=== PATIENT | male | born 1960 | race Caucasian/White ===

== ENCOUNTER 2017-01-20 16:05 | Inpatient (IN) | payer OTHER, MEDICAID ==
[~2017-01-20] VITALS: Ht 188 cm; Wt 108.0 kg
--- NOTE | 2017-01-20 16:50 | NUR ---
ADMIT NOTE Received pt from ER to the floor with a diagnosis of intractable headache. Admission process initiated. patient oriented to pain management, safety and call light-teach back done.
[2017-01-20 17:02] VITALS: BP_SYST 141
[2017-01-20] MEDS ORDERED: CARV12.548 PO (17:41)
[2017-01-20] MEDS ORDERED: ELA25 PO (17:41)
[2017-01-20] MEDS ORDERED: CITA20TA11 PO (17:41)
[2017-01-20] MEDS ORDERED: LOSA25TA3 PO (17:41)
[2017-01-20] MEDS ORDERED: NOR10 PO (17:41)
[2017-01-20] MEDS ORDERED: CYCL-365 PO (17:41)
[2017-01-20] MEDS ORDERED: NEU300 PO (17:41)
[2017-01-20] MEDS ORDERED: COLC0.6T67 PO (17:41)
[2017-01-20 18:27] LABS: BASOPHILS % (AUTO) 0.3 % (0.0-2.0); EOSINOPHILS % (AUTO) 0.3 % (0.0-4.0); HEMOGLOBIN 13.5 g/dL (14.0-18.0); LYMPHOCYTES # (AUTO) 2.1 K/uL (1.0-5.5); LYMPHOCYTES % (AUTO) 17.4 % (20.5-51.5); MEAN CORPUSCULAR HEMOGLOBIN 32 pg (27-31); MEAN CORPUSCULAR HGB CONC 35 % (32-36); MEAN CORPUSCULAR VOLUME 92 fL (79.0-98.0); MONOCYTES # (AUTO) 0.7 K/uL (0.0-1.0); MONOCYTES % (AUTO) 5.7 % (1.7-9.3); NEUTROPHILS # (AUTO) 9.1 K/uL (1.8-7.7); NEUTROPHILS % (AUTO) 76.3 % (40.0-70.0); PLATELET COUNT (AUTO) 230 K/uL (130-430); RED BLOOD CELL COUNT(AUTO) 4.26 MIL/uL (4.2-6.2); RED CELL DISTRIBUTION WIDTH 13.1 % (9.0-15.0); WHITE BLOOD COUNT (AUTO) 11.9 K/uL (4.8-10.8)
[2017-01-20 18:34] LABS: CALCIUM 8.9 mg/dL (8.4-11.0); CREATININE 1.7 mg/dL (0.55-1.30); POTASSIUM 4.4 mmol/L (3.5-5.1)
[2017-01-20 18:39] LABS: ALBUMIN 3.5 g/dL (3.4-4.8); TOTAL BILIRUBIN 0.4 mg/dL (0.0-1.0); TOTAL PROTEIN, SERUM 7.4 g/dL (6.4-8.3)
--- NOTE | 2017-01-20 19:09 | NUR ---
CONSULTATION PAGED REASON FOR CONSULTATION:RIGHT SIDE NECK MASS WAS CONSULT CALLED?Y PERSON WHO WAS NOTIFIED:ALEJANDRO CONSULTING PHYSICIAN:ALIA ALVAREZ COURT ATTENDANT SPECIALTY:ONCOLOGY/HEMATOLOGY COURT ATTENDANT PHONE NUMBER:[phone]
[2017-01-20 19:30] VITALS: BP_SYST 152
--- NOTE | 2017-01-20 19:30 | NUR ---
INITIAL NOTES; -Pt is a/ox4. Pt denies any pain, sob,or acute distress. IV left hand #24,patent, no s/s any infiltration. Fall precaution in place. Bed alarm in place, bed low position and side railsx2. Call light w/in reach. Discussed poc,all safety measures, pain mgmt, to use call light to inform nurse, pt verbalized understanding. Continue to monitor pt.
[2017-01-20] MEDS: CYCLOBENZAPRINE HCL 10 MG TABLET (FLEXERIL) PO SCH (20:50)
[2017-01-20] MEDS: CARVEDILOL 12.5 MG TABLET (COREG) PO SCH (20:50)
[2017-01-20] MEDS: AMITRIPTYLINE HCL 25 MG TABLET (ELAVIL) PO SCH (20:51)
[2017-01-20] MEDS: GABAPENTIN 300 MG CAPSULE PO SCH (20:51)
[2017-01-20] MEDS: HYDROmorphone 2 MG/ML VIAL IVP PRN (20:51)
--- NOTE | 2017-01-20 20:51 | NUR ---
PAIN MEDICATION ADMINISTERED -Pt is c/o rt face and rt neck pain sharp, gave Dilaudid 2mg IVP. See EMAR for pain reassessment. Call light /win reach. Continue to monitor pt.
[2017-01-20] MEDS: INSULIN REGULAR, HUMAN 100 UNITS/ML, 10 ML VIAL (novoLIN R) SUBCUT PRN (20:56)
--- NOTE | 2017-01-20 21:50 | NUR ---
ROUNDS; RETURNED FROM BATHROOM TO BED SAFELY -Pt is able to transfer from own wheelchair from toilet to wheelchair safely to bed with mini assistance. Fall precaution in place. Call light w/in reach. Continue to monitor pt.
--- NOTE | 2017-01-20 22:38 | NUR ---
ROUNDS; -Pt is resting. Pt denies any pain, sob,or acute distress. Fall precaution in place. Bed alarm in place, bed low position and side railsx2. Call light w/in reach. Continue to monitor pt.
[2017-01-21] VITALS (7 sets, daily range): BP systolic 103–145
--- NOTE | 2017-01-21 | NUR ---
ENDORSED TO LUCIA-RN TO CONTINUE CARE -Pt is resting. No s/s any pain, sob,or acute distress noted. Fall precaution in place. Bed alarm in place, bed low position and side railsx2. Call light w/in reach. Continue to monitor pt.
--- NOTE | 2017-01-21 00:01 | NUR ---
ASSUMPTION OF CARE ASSUMED CARE OF PT., PT. IS RESTING QUIETLY, VITAL SIGNS STABLE, NO DISTRESS NOTED, DENIES PAIN. CALL LIGHT WITHIN REACH, BED IN LOWEST POSITION.
[2017-01-21] MEDS: HYDROmorphone 2 MG/ML VIAL IVP PRN ×5 (01:47→20:10)
--- NOTE | 2017-01-21 01:47 | NUR ---
PAIN PT. C/O SEVERE PAIN RATED "10/10 TO R. SIDE OF NECK AND HEAD", DILAUDID 2 MG IVP GIVEN ORDERED. VITAL SIGNS STABLE, CALL LIGHT WITHIN REACH.
--- NOTE | 2017-01-21 03:45 | NUR ---
RN ROUNDS PT. SLEEPING, VITAL SIGNS STABLE, NO DISTRESS NOTED, NO S/S OF PAIN OR DISCOMFORT. CALL LIGHT WITHIN REACH, BED IN LOWEST POSITION.
--- NOTE | 2017-01-21 05:45 | NUR ---
RN ROUNDS PT. SLEEPING, NO DISTRESS NOTED, NO S/S OF PAIN OR DISCOMFORT. CALL LIGHT WITHIN REACH, BED IN LOWEST POSITION.
--- NOTE | 2017-01-21 06:25 | NUR ---
ACCUCHECK/CLOSING NOTES BLOOD NGULX=048, NO COVERAGE REQUIRED. IV ACCESS FLUSHED WELL, SALINE LOCKED. NO DISTRESS NOTED, NO S/S OF PAIN OR DISCOMFORT. CALL LIGHT WITHIN REACH, BED IN LOWEST POSITION.
--- NOTE | 2017-01-21 07:35 | NUR ---
initial rounds patient AOx4, sitting up at bedside speaking with neighbor, patient complaining of increased pain to his right face,ear and right side of neck, patient asking when his next "pain shot" is due, explained to patient of today's plan, patient is calm and cooperative
--- NOTE | 2017-01-21 09:24 | NUR ---
Nutrition Update Olman Scale 18 noted. Pt admitted for retractable headache. Diet: [facility] BMI: 30.7 kg/m2 RD to follow per nutrition care standards.
[2017-01-21] MEDS: CYCLOBENZAPRINE HCL 10 MG TABLET (FLEXERIL) PO SCH ×2 (09:27→21:38)
[2017-01-21] MEDS: COLCHICINE 0.6 MG TABLET PO SCH (09:28)
[2017-01-21] MEDS: GABAPENTIN 300 MG CAPSULE PO SCH ×3 (09:28→21:38)
[2017-01-21] MEDS: amLODIPine BESYLATE 10 MG TABLET PO SCH (09:28)
[2017-01-21] MEDS: CITALOPRAM HYDROBROMIDE 20 MG TABLET PO SCH (09:29)
[2017-01-21] MEDS: LOSARTAN POTASSIUM 25 MG TABLET PO SCH (09:29)
[2017-01-21] MEDS: CARVEDILOL 12.5 MG TABLET (COREG) PO SCH ×2 (09:43→21:38)
[2017-01-21] MEDS ORDERED: CARVEDILOL 6.25 MG TABLET (COREG) ONE (09:44)
--- NOTE | 2017-01-21 09:45 | NUR ---
rounds patient AOx4, sitting up at bedside, speaking with neighbor, patient requesting pain medication, explained to patient that I will give him his pain medication at 10:30, patient calm and cooperative
[2017-01-21] MEDS ORDERED: DIATR MEGLU/DIATRIZ SOD 30 ML SOLUTION PO ONE (10:50)
--- NOTE | 2017-01-21 11:45 | NUR ---
patient Aox4, lying supine in [facility] talking on phone, patient has no complaints at this time
[2017-01-21] MEDS: INSULIN REGULAR, HUMAN 100 UNITS/ML, 10 ML VIAL (novoLIN R) SUBCUT PRN ×3 (11:46→21:46)
--- NOTE | 2017-01-21 13:18 | NUR ---
rounds patient assisted to the bathroom via wheelchair, tolerated well
--- NOTE | 2017-01-21 14:56 | NUR ---
rounds patient lying in gurney, awake, calm and cooperative, respiration even and unlabored at this time
--- NOTE | 2017-01-21 15:05 | NUR ---
pain patient requsting pain medication, states "my ear is burning 10/10" patient sitting up at bedside, watching movie on his phone
--- NOTE | 2017-01-21 17:49 | NUR ---
patient sitting up at bedside, eating dinner, requesting another cup of coffee, would like to send salad back for something else because he "told the kaiawhina kohanga reo earlier that he can't eat salad because he doesn't have dentures"
--- NOTE | 2017-01-21 18:49 | NUR ---
Closing Note Pt in bed, no s/s of distress or sob noted, pt has no c/o pain at this time, pt in stable condition, pt has no signs of hyperglycemia or hypoglycemia, bed at lowest position, call light within reach, will endorse care of pt to incoming nurse, needs met throughout shift.
--- NOTE | 2017-01-21 20:00 | NUR ---
NOTES; SEEN PT SITTING IN BED. A/A/O X4, NO ACUTE DISTRESS NOTED. VITAL SIGNS STABLE, AFEBRILE. RT SIDE NECK SWELLING NOTED. RT BKA. IV SALINE LOCK TO THE LEFT FOREARM, GAUGE 24, PATENT. NO SIGNS OF INFECTION NOTED. PT STATED 8/10 RT NECK PAIN. RN COVERING INFORMED TO MEDICATE PT. BED LOCKED AND IN LOW POSITION, SIDE RAILS UP X3, BED ALARM ON. CALL LIGHT WITH REACH.
--- NOTE | 2017-01-21 20:11 | NUR ---
C/o R face pain 05/25, Dilaudid IVP given VS 123/71/85
--- NOTE | 2017-01-21 21:23 | NUR ---
NOTES; PT WENT OUT TO SMOKE VIA WHEELCHAIR, ACCOMPANIED BY STOVE TENDER. BACK FROM SMOKE BREAK, IN BED. DENIES ANY PAIN AT THIS TIME. SAFETY MEASURES IN PROGRESS.
[2017-01-21] MEDS: AMITRIPTYLINE HCL 25 MG TABLET (ELAVIL) PO SCH (21:38)
--- NOTE | 2017-01-21 21:50 | NUR ---
NOTES; SCHEDULED PO MEDICATION ADMINISTERED. BLOOD SUGAR FOUND TO BE 184, INSULIN ADMINISTERED SUBCUTANEOUSLY PER SLIDING SCALE ORDER.
--- NOTE | 2017-01-22 | NUR ---
NOTES; PT APPEARED TO BE SLEEPING, EYES CLOSED. EASILY AROUSED. SAFETY MEASURES IN PROGRESS.
--- NOTE | 2017-01-22 01:51 | NUR ---
NOTES; PT APPEARED TO BE SLEEPING, EYES CLOSED. EASILY AROUSED. SAFETY MEASURES IN PROGRESS. WILL CONTINUE TO MONITOR.
[2017-01-22] MEDS: HYDROmorphone 2 MG/ML VIAL IVP PRN ×6 (03:54→22:30)
[2017-01-22 03:57] VITALS: BP_SYST 106
--- NOTE | 2017-01-22 04:00 | NUR ---
NOTES; AWAKE, IN BED WITH C/O RT NECK PAIN. PT PULLED OUT HIS IV SALINE LOCK ON THE LEFT AC WITH CATHETER TIP INTACT. NO BLEEDING NOTED. RESTARTED NEW IV ON THE LEFT HAND, GAUGE 22, PATENT. ANTONINO COLIN ADR NOTIFIED ABOUT PT C/O PAIN. RN WILL MEDICATE PT.
--- NOTE | 2017-01-22 04:50 | NUR ---
NOTES; RN COVERING MEDICATED PT. PLEASE CHECK PAIN FLOW SHEET.
--- NOTE | 2017-01-22 06:19 | NUR ---
NOTES; IN BED RESTING QUIETLY. NO APPARENT DISTRESS NOTED. EASILY AROUSED. DENIES ANY PAIN AT THIS TIME. ALL NEEDS ATTENDED. SAFETY MEASURES MAINTAINED.
--- NOTE | 2017-01-22 08:00 | NUR ---
initial notes rec patient awake alert sitting in his wheelchair with ivl on the l hand intact. no infiltration noted. noted with ivl on the l hand and no infiltration noted. noted r neck area to be red and swollen. resp easy and unlabored. no acute distress. bed in low position and side rails up and locked. call light within reached and calls at intervals for assistance.
[2017-01-22 08:22] VITALS: BP_SYST 115
[2017-01-22] MEDS: amLODIPine BESYLATE 10 MG TABLET PO SCH (08:57)
[2017-01-22] MEDS: COLCHICINE 0.6 MG TABLET PO SCH (08:58)
[2017-01-22] MEDS: LOSARTAN POTASSIUM 25 MG TABLET PO SCH (08:58)
[2017-01-22] MEDS: CYCLOBENZAPRINE HCL 10 MG TABLET (FLEXERIL) PO SCH ×2 (08:58→21:02)
[2017-01-22] MEDS: GABAPENTIN 300 MG CAPSULE PO SCH ×3 (08:58→21:02)
[2017-01-22] MEDS: CITALOPRAM HYDROBROMIDE 20 MG TABLET PO SCH (08:58)
[2017-01-22] MEDS: CARVEDILOL 12.5 MG TABLET (COREG) PO SCH ×2 (08:59→21:01)
--- NOTE | 2017-01-22 10:00 | NUR ---
rounds pt in his wheelchair and sitting comfortably. no acute distress. no sob noted.
--- NOTE | 2017-01-22 11:47 | NUR ---
Social Service Note: Pt referred to social worker school by caseworker protective services due to pt being homeless. DIRECTOR GLOBAL reviewed dc plan assessment; plan is for pt to go to SNF upon discharge. Client Support Consultant will remain available for support and will assist with pt's discharge as needed.
[2017-01-22 12:00] VITALS: BP_SYST 102
--- NOTE | 2017-01-22 12:00 | NUR ---
rounds no hypo hyperglycemic reaction noted. with good appetite. bed in low position.
[2017-01-22] MEDS: INSULIN REGULAR, HUMAN 100 UNITS/ML, 10 ML VIAL (novoLIN R) SUBCUT PRN ×3 (12:50→21:12)
--- NOTE | 2017-01-22 14:00 | NUR ---
rounds raoms around in his wheelchair outside his room. no acute distress noted.
--- NOTE | 2017-01-22 16:00 | NUR ---
rounds call light within reached and no sob noted.
[2017-01-22 16:37] VITALS: BP_SYST 109
--- NOTE | 2017-01-22 17:00 | NUR ---
rounds seen by dr gaffney and with orders. no hypo hyperglycemic reaction noted. wheels himself in his wheelchair and [place]. no acute distress noted.
--- NOTE | 2017-01-22 18:30 | NUR ---
closing notes no acute distress noted. was medicated and educated re fall/ safety. still sitting in his wheelcahir and instructed to call nurse when needing to go back to bed. stable, needs attended.
[2017-01-22 19:00] VITALS: BP_SYST 119
[2017-01-22 20:00] VITALS: BP_SYST 119
[2017-01-22] MEDS: AMITRIPTYLINE HCL 25 MG TABLET (ELAVIL) PO SCH (21:01)
--- NOTE | 2017-01-22 22:22 | NUR ---
paged Dr. Walter (Dr. Lockwood content editor) Spoke with Berna.
[2017-01-23 01:01] VITALS: BP_SYST 128
[2017-01-23] MEDS: HYDROmorphone 2 MG/ML VIAL IVP PRN ×5 (02:33→19:37)
[2017-01-23 04:30] VITALS: BP_SYST 100
--- NOTE | 2017-01-23 08:00 | NUR ---
AM Initial Notes Pt aaox4 with complaints of right facial pain. No distress noted. Hard lump to right side of face noted. IV to left hand #22g saline locked patent and flushing. Right BKA and uses wheelchair. Educated about falls and safety. Refused to have bed alarm armed. Encouraged to call for assistance. Call light within reach. Will monitor.
[2017-01-23 08:15] VITALS: BP_SYST 106
[2017-01-23] MEDS: GABAPENTIN 300 MG CAPSULE PO SCH ×3 (09:27→20:51)
[2017-01-23] MEDS: CARVEDILOL 12.5 MG TABLET (COREG) PO SCH ×2 (09:28→20:51)
[2017-01-23] MEDS: CITALOPRAM HYDROBROMIDE 20 MG TABLET PO SCH (09:28)
[2017-01-23] MEDS: COLCHICINE 0.6 MG TABLET PO SCH (09:28)
[2017-01-23] MEDS: CYCLOBENZAPRINE HCL 10 MG TABLET (FLEXERIL) PO SCH ×2 (09:29→20:51)
[2017-01-23] MEDS: LOSARTAN POTASSIUM 25 MG TABLET PO SCH (09:29)
[2017-01-23] MEDS: amLODIPine BESYLATE 10 MG TABLET PO SCH (09:29)
--- NOTE | 2017-01-23 10:00 | NUR ---
Pain Pt complaints of right side facial pain 03/25. No distress noted. Will inform RN for medication administration. Pt on wheelchair and refused to go back to bed. Encouraged to call for assistance. Call light within reach. Will monitor.
--- NOTE | 2017-01-23 11:00 | NUR ---
Smoke Pt left floor via wheelchair with MACHINE TENDER to smoke. Educated about safety and fall risk. Verbalized understanding. No distress noted.
[2017-01-23 12:23] VITALS: BP_SYST 100
--- NOTE | 2017-01-23 12:30 | NUR ---
Rounds Pt sitting up in wheelchair eating lunch. No distress noted. encouraged to call for assistance. Will monitor.
--- NOTE | 2017-01-23 14:30 | NUR ---
Pain Pt complaints of facial and neck pain. Informed RN for medication administration.
[2017-01-23 16:10] VITALS: BP_SYST 98
--- NOTE | 2017-01-23 16:41 | NUR ---
Dr. Rebekah JERNIGAN doing rounds. Plan of care discussed.
[2017-01-23] MEDS: INSULIN REGULAR, HUMAN 100 UNITS/ML, 10 ML VIAL (novoLIN R) SUBCUT PRN ×2 (17:27→20:55)
--- NOTE | 2017-01-23 17:31 | NUR ---
Rounds Pt awake wheeling himself in hallway. Complaints of facial and leg pain. Accucheck 172. Insulin sliding scale administered. Will inform RN for medication administration.
--- NOTE | 2017-01-23 18:30 | NUR ---
Closing notes Pt awake up in wheelchair watching tv. No significant changes noted. Will endorse care to incoming nurse.
[2017-01-23 19:30] VITALS: BP_SYST 121
--- NOTE | 2017-01-23 19:30 | NUR ---
Initial Notes Pt is A/Ox4, cooperative. Pt c/o right side pain 8/10 to head, small firm bump noted to side of right cheek. Per pt, he stated he has cancer with mets. Allowed pt to voice feelings and concerns. Will ask covering RN to medicate for pain as ordered. [place] of care discussed with pt, pt verbalized understanding. Will reinforce teaching as needed. VSS. Breathing is even and unlabored, with clear lung sounds. Pt has a right below knee amputation, wrapped with dressing. IV to left hand #22g noted, saline lock. Pt's wheelchair at bedside. Swelling noted to left leg with mild pitting edema +1. Safety precautions in place, side rails up x3 with bed in lowest, locked position, bed alarm on. Call light in reach. Will continue to monitor.
--- NOTE | 2017-01-23 19:40 | NUR ---
PAIN Pt. c/o "05/25" pain to head. Pt. medicated with Dilaudid 2mg IVP as ordered PRN for severe pain. Educated pt. regarding medication and s/e. Pt. verbalized understanding. Pt. requested sugar free jello. Educated pt. to use call light for needs. Safety precautions in place. VSS within normal limits. Will continue to monitor.
--- NOTE | 2017-01-23 20:37 | NUR ---
Rounds Pt taken out to smoke by JETHRO Junior at this time. No acute distress noted. Will await pt's return.
[2017-01-23] MEDS: AMITRIPTYLINE HCL 25 MG TABLET (ELAVIL) PO SCH (20:51)
[2017-01-23] MEDS: MORPHINE SULFATE 30 MG TABLET.SA PO SCH (20:51)
[2017-01-23] MEDS: ENOXAPARIN SODIUM 40 MG/0.4 ML SYRINGE SUBCUT SCH (20:52)
[2017-01-24] MEDS: HYDROmorphone 2 MG/ML VIAL IVP PRN ×6 (00:14→20:13)
[2017-01-24 01:18] VITALS: BP_SYST 106
--- NOTE | 2017-01-24 01:22 | NUR ---
PATIENT RESTING: Patient resting quietly. No acute distress noted. Vital signs within normal range. Call light in hand. Will continue to monitor.
--- NOTE | 2017-01-24 03:41 | NUR ---
Rounds Pt is sleeping comfortably in bed. No acute distress or sob noted. IV intact. Safety measures in place. Call light in reach. Will continue to monitor.
--- NOTE | 2017-01-24 04:11 | NUR ---
PAIN Pt. c/o "05/25" generalized pain. Pt. medicated with Dilaudid 2mg IVP as ordered PRN for severe pain. Educated pt. regarding medication and s/e. Encouraged pt. to use call light for needs due to increased risk for falls. Pt. verbalized understanding with no other needs at this time. Pt. requested for lights to be turned off. Safety and fall precautions in place. Will continue to monitor.
--- NOTE | 2017-01-24 06:26 | NUR ---
Closing Notes Pt is awake, alert and oriented. Pt is sitting in his wheelchair. Blood sugar checked, 148, no insulin given per sliding scale ordered. Pt denies any pain or sob at this time. VSS. IV intact. All needs met throughout shift. Will endorse care to am nurse. Call light in reach. Will continue to monitor.
[2017-01-24 06:36] VITALS: BP_SYST 103
[2017-01-24 07:04] LABS: BASOPHILS # (AUTO) 0.1 K/uL (0.0-0.2); BASOPHILS % (AUTO) 0.7 % (0.0-2.0); EOSINOPHILS # (AUTO) 0.2 K/uL (0.0-0.4); EOSINOPHILS % (AUTO) 2.7 % (0.0-4.0); HEMATOCRIT 33.2 % (36-54); HEMOGLOBIN 11.5 g/dL (14.0-18.0); LYMPHOCYTES # (AUTO) 3.2 K/uL (1.0-5.5); LYMPHOCYTES % (AUTO) 42.1 % (20.5-51.5); MEAN CORPUSCULAR HEMOGLOBIN 32 pg (27-31); MEAN CORPUSCULAR HGB CONC 35 % (32-36); MEAN CORPUSCULAR VOLUME 92 fL (79.0-98.0); MONOCYTES # (AUTO) 0.4 K/uL (0.0-1.0); MONOCYTES % (AUTO) 5.7 % (1.7-9.3); NEUTROPHILS # (AUTO) 3.8 K/uL (1.8-7.7); NEUTROPHILS % (AUTO) 48.8 % (40.0-70.0); PLATELET COUNT (AUTO) 166 K/uL (130-430); RED BLOOD CELL COUNT(AUTO) 3.61 MIL/uL (4.2-6.2); RED CELL DISTRIBUTION WIDTH 12.8 % (9.0-15.0); WHITE BLOOD COUNT (AUTO) 7.7 K/uL (4.8-10.8)
[2017-01-24 07:21] LABS: INR 0.9 (0.80-1.20); PROTHROMBIN TIME 9.9 SECS (9.5-12.5)
[2017-01-24 07:26] LABS: CALCIUM 8.1 mg/dL (8.4-11.0); CREATININE 1.75 mg/dL (0.55-1.30); POTASSIUM 4.7 mmol/L (3.5-5.1); TOTAL BILIRUBIN 0.3 mg/dL (0.0-1.0); TOTAL PROTEIN, SERUM 6.3 g/dL (6.4-8.3)
--- NOTE | 2017-01-24 07:38 | NUR ---
OPENING NOTE RECEIVED REPORT FROM WOOD BORING MACHINE OPERATOR RN. PATIENT IS SITTING UPRIGHT IN WHEELCHAIR. PLEASANT, CALM AFFECT. PATIENT HAS COMPLAINTS OF 10/10 PAIN, 'NORMAL' PER PATIENT. WOULD LIKE PAIN MEDICATION WHEN AVAILABLE. PATIENTS BED IN LOWEST POSITION, CALL LIGHT WITHIN REACH OF PATIENT IN WHEELCHAIR, AND SIDE RAILS ARE UP WHEN HE WOULD LIKE TO RETURN TO BED. WILL CONTINUE TO MONITOR PATIENT FOR CHANGES IN STATUS.
[2017-01-24 08:00] VITALS: BP_SYST 108
[2017-01-24] MEDS: COLCHICINE 0.6 MG TABLET PO SCH (08:21)
[2017-01-24] MEDS: CARVEDILOL 12.5 MG TABLET (COREG) PO SCH ×2 (08:21→20:59)
[2017-01-24] MEDS: CITALOPRAM HYDROBROMIDE 20 MG TABLET PO SCH (08:21)
[2017-01-24] MEDS: LOSARTAN POTASSIUM 25 MG TABLET PO SCH (08:22)
[2017-01-24] MEDS: CYCLOBENZAPRINE HCL 10 MG TABLET (FLEXERIL) PO SCH ×2 (08:22→20:58)
[2017-01-24] MEDS: MORPHINE SULFATE 30 MG TABLET.SA PO SCH ×2 (08:22→20:59)
[2017-01-24] MEDS: GABAPENTIN 300 MG CAPSULE PO SCH ×3 (08:22→20:58)
[2017-01-24] MEDS: amLODIPine BESYLATE 10 MG TABLET PO SCH (08:23)
--- NOTE | 2017-01-24 10:15 | NUR ---
1000 NOTE PATIENT IS SITTING UPRIGHT IN WHEELCHAIR. PLEASANT, CALM AFFECT. PATIENT HAS COMPLAINTS OF 10/10 PAIN, 'NORMAL' PER PATIENT. WOULD LIKE PAIN MEDICATION WHEN AVAILABLE. PATIENTS BED IN LOWEST POSITION, CALL LIGHT WITHIN REACH OF PATIENT IN WHEELCHAIR, AND SIDE RAILS ARE UP WHEN HE WOULD LIKE TO RETURN TO BED. WILL CONTINUE TO MONITOR PATIENT FOR CHANGES IN STATUS.
[2017-01-24 12:14] VITALS: BP_SYST 109
--- NOTE | 2017-01-24 12:14 | NUR ---
1200 NOTE PATIENT IS SITTING UPRIGHT IN WHEELCHAIR. PLEASANT, CALM AFFECT. FAMILY IS AT BEDSIDE FOR COMPANY. PATIENT HAS COMPLAINTS OF 10/10 PAIN, 'NORMAL' PER PATIENT. WOULD LIKE PAIN MEDICATION WHEN AVAILABLE. PATIENTS BED IN LOWEST POSITION, CALL LIGHT WITHIN REACH OF PATIENT IN WHEELCHAIR, AND SIDE RAILS ARE UP WHEN HE WOULD LIKE TO RETURN TO BED. WILL CONTINUE TO MONITOR PATIENT FOR CHANGES IN STATUS.
--- NOTE | 2017-01-24 14:18 | NUR ---
1400 NOTE PATIENT IS SITTING UPRIGHT IN WHEELCHAIR. PLEASANT, CALM AFFECT. FAMILY IS AT BEDSIDE FOR COMPANY. PATIENT HAS COMPLAINTS OF 10/10 PAIN, 'NORMAL' PER PATIENT. PATIENTS BED IN LOWEST POSITION, CALL LIGHT WITHIN REACH OF PATIENT IN WHEELCHAIR, AND SIDE RAILS ARE UP WHEN HE WOULD LIKE TO RETURN TO BED. WILL CONTINUE TO MONITOR PATIENT FOR CHANGES IN STATUS.
[2017-01-24 16:35] VITALS: BP_SYST 106
--- NOTE | 2017-01-24 18:38 | NUR ---
NOTE PATIENT HAS BLOOD SUGAR CHECKED LATE, PATIENT REFUSAL EARLIER, AT TIME DUE, BECAUSE OF PAIN. MEDICATED. WOULD LIKE SUGARS CHECKED NOW. BGL OF 186, AFTER EATING DINNER. REFUSED INSULIN FOR COVERAGE. WILL ENDORSE TO ACOUSTICS TEACHER.
--- NOTE | 2017-01-24 18:56 | NUR ---
1800/CLOSING NOTE WAITING TO GIVE REPORT TO ONCOMING MOLDING MANAGER NURSE. PATIENT IS SITTING UPRIGHT IN WHEELCHAIR. PLEASANT, CALM AFFECT. PATIENT IS WAITING TO GO SMOKE, CONSENT SIGNED. PATIENT HAS COMPLAINTS OF 10/10 PAIN, 'NORMAL' PER PATIENT. PATIENT MEDICATED WITH IV MEDS AT 1810. PATIENTS BED IN LOWEST POSITION, CALL LIGHT WITHIN REACH OF PATIENT IN WHEELCHAIR, AND SIDE RAILS ARE UP WHEN HE WOULD LIKE TO RETURN TO BED. WILL CONTINUE TO MONITOR PATIENT FOR CHANGES IN STATUS.
[2017-01-24 19:30] VITALS: BP_SYST 108
--- NOTE | 2017-01-24 19:47 | NUR ---
Initial Notes Pt is A/Ox4, anxious and c/o pain. Pt c/o right side pain 8/10 to head, small firm bump noted to side of right cheek. Pt noted to have some anxiety at this time regarding planned biopsy for tomorrow. Allowed pt to voice feelings and concerns. Will ask covering RN to medicate for pain as ordered. [place] of care discussed with pt, pt verbalized understanding. Will reinforce teaching as needed. VSS: Blood pressure 108/56, heart rate 86, RR 18, O2 saturation 98% on room air, Temp 97.5. Breathing is even and unlabored, with clear lung sounds. Pt has a right below knee amputation, wrapped with dressing. IV to left hand #22g noted, saline lock. Pt's wheelchair at bedside. Swelling noted to left leg with mild pitting edema +1. Safety precautions in place, side rails up x3 with bed in lowest, locked position, bed alarm on. Call light within reach. Will continue to monitor.
--- NOTE | 2017-01-24 20:15 | NUR ---
PAIN Pt. c/o severe "10/10" generalized pain. Pt. medicated with Dilaudid 2mg IVP as ordered PRN for severe pain. Educated pt. regarding medication and s/e. Pt. verbalized understanding. Educated pt. to use call light for needs due to his increased risk for falls. Pt. requested sugar free jello. Denies any other needs at this time. Primary nurse, BRANDO Jimenez also made aware.
[2017-01-24] MEDS: AMITRIPTYLINE HCL 25 MG TABLET (ELAVIL) PO SCH (20:58)
[2017-01-24] MEDS: ENOXAPARIN SODIUM 40 MG/0.4 ML SYRINGE SUBCUT SCH (20:59)
[2017-01-24] MEDS: INSULIN REGULAR, HUMAN 100 UNITS/ML, 10 ML VIAL (novoLIN R) SUBCUT PRN (21:01)
[2017-01-25] VITALS (7 sets, daily range): BP systolic 92–127
--- NOTE | 2017-01-25 01:32 | NUR ---
Rounds Pt is sleeping safely in bed with no acute distress or sob noted. VSS. IV intact. All needs met at this time. Call light in reach. Will continue to monitor.
--- NOTE | 2017-01-25 04:04 | NUR ---
Rounds Pt is sleeping comfortably in bed at this time. No acute distress or sob noted. All needs met. Call light in reach. Will continue to monitor.
[2017-01-25] MEDS: HYDROmorphone 2 MG/ML VIAL IVP PRN ×4 (05:15→21:43)
--- NOTE | 2017-01-25 05:15 | NUR ---
PAIN Pt. c/o "05/25" generalized pain. Pt. medicated with Dilaudid 2mg IVP as ordered PRN for severe pain by covering RN. Educated pt. regarding medication and s/e. Encouraged pt. to use call light for needs due to increased risk for falls. Pt. verbalized understanding with no other needs at this time. Pt. requested for lights to be turned off. Safety and fall precautions in place. Will continue to monitor.
--- NOTE | 2017-01-25 06:28 | NUR ---
Closing Notes Pt is awake, alert and oriented. Pt is laying safely in bed. Blood sugar checked, 141, no insulin given per sliding scale ordered. Pt denies any pain or sob at this time. VSS. IV intact. All needs met throughout shift. Will endorse care to am nurse. Call light in reach. Will continue to monitor.
--- NOTE | 2017-01-25 07:15 | NUR ---
OPENING NOTE RECEIVED REPORT FROM PARER RN. PATIENT RESTING COMFORTABLY IN BED,COMPLAINTS OF PAIN AT THIS TIME IN RIGHT FACE. PATIENT AWAITING CT GUIDED BIOPSY. PRN MEDICATION GIVEN BY PARER RN. NO NOTABLE SIGNS OF DISTRESS AT THIS TIME. PATIENTS BED IN LOWEST POSITION, CALL LIGHT WITHIN REACH, AND SIDE RAILS ARE UP FOR SAFETY. PATIENTS WHEELCHAIR IS WHICH REACH OF TRANSFER WHEN READY. PATIENT SELF TRANSFERS TO WHEELCHAIR. WILL CONTINUE TO MONITOR PATIENT FOR CHANGES IN STATUS.
[2017-01-25] MEDS: CYCLOBENZAPRINE HCL 10 MG TABLET (FLEXERIL) PO SCH ×2 (08:40→21:42)
[2017-01-25] MEDS: COLCHICINE 0.6 MG TABLET PO SCH (08:40)
[2017-01-25] MEDS: amLODIPine BESYLATE 10 MG TABLET PO SCH (08:40)
[2017-01-25] MEDS: LOSARTAN POTASSIUM 25 MG TABLET PO SCH (08:41)
[2017-01-25] MEDS: GABAPENTIN 300 MG CAPSULE PO SCH ×3 (08:41→21:38)
[2017-01-25] MEDS: MORPHINE SULFATE 30 MG TABLET.SA PO SCH ×2 (08:41→21:40)
[2017-01-25] MEDS: CITALOPRAM HYDROBROMIDE 20 MG TABLET PO SCH (08:41)
[2017-01-25] MEDS: CARVEDILOL 12.5 MG TABLET (COREG) PO SCH ×2 (08:42→21:39)
--- NOTE | 2017-01-25 10:27 | NUR ---
1000 NOTE PATIENT RESTING COMFORTABLY SITTING UPRIGHT IN WHEELCHAIR,COMPLAINTS OF PAIN AT THIS TIME IN RIGHT FACE. PATIENT AWAITING CT GUIDED BIOPSY. CONSENT SIGNED. NO NOTABLE SIGNS OF DISTRESS AT THIS TIME. PATIENTS BED IN LOWEST POSITION, CALL LIGHT WITHIN REACH, AND SIDE RAILS ARE UP FOR SAFETY WHEN PATIENT RETURNS TO BED. WILL CONTINUE TO MONITOR PATIENT FOR CHANGES IN STATUS.
--- NOTE | 2017-01-25 12:01 | NUR ---
BALANCE BRIDGE ASSEMBLER NOTE: HEAD ATHLETIC TRAINER completed Psychosocial Assessment. Please refer to Assessment for additional information. According to pt's chart, pt is a 56 year old male admitted with the diagnosis of Retractable Headache. Pt has a history of diabetes mellitus, chronic kidney disease, and peripheral vascular disease of lower extremities. 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 HEAD ATHLETIC TRAINER provided pt with homeless assistance, transportation, [facility], and food bank resources if needed in the future. HEAD ATHLETIC TRAINER placed Homeless Waiver in pt's chart to be completed upon discharge. Pt reports that he took the [employer] from [place] one week ago because he wanted to be closer to his family and wanted to receive treatment from Dr. Khan who has previously treated pt. Pt reports that he can not stay with his sister or niece at this time, but they are both working on finding alternative living situations so that pt can stay with them in the future. Pt and pt's sister would like pt to go to SNF short term while pt receives treatment for cancer and then pt plans to live with pt's sister or niece. Pt did not express any other needs or concerns at this time. HEAD ATHLETIC TRAINER encouraged pt to contact [employer] if any additional needs arise. HEAD ATHLETIC TRAINER updated pt's Nurse, Andie, and Refining Still Operator, Elizabeth, regarding conversation with pt. [employer] will continue to remain available and follow up as needed.
--- NOTE | 2017-01-25 12:49 | NUR ---
1200 NOTE PATIENT RESTING COMFORTABLY SITTING UPRIGHT IN WHEELCHAIR,COMPLAINTS OF PAIN AT THIS TIME IN RIGHT FACE. WOULD LIKE MEDICATION SOON IT IS AVAILABLE. PATIENT AWAITING CT GUIDED BIOPSY. CONSENT HAS BEEN SIGNED. ATTEMPTED EARLIER BIOPSY BUT PATIENT WAS EATING LUNCH. POSTPONED UNTIL LATER IN THE DAY. NO NOTABLE SIGNS OF DISTRESS AT THIS TIME. PATIENTS BED IN LOWEST POSITION, CALL LIGHT WITHIN REACH, AND SIDE RAILS ARE UP FOR SAFETY WHEN PATIENT RETURNS TO BED. WILL CONTINUE TO MONITOR PATIENT FOR CHANGES IN STATUS.
--- NOTE | 2017-01-25 14:47 | NUR ---
NOTE PATIENT WENT TO CT FOR BIOPSY OF RIGHT FACIAL MASS. [facility] WHEELED PATIENT TO CT IN OWN WHEELCHAIR. PAIN MEDICATION GIVEN PRIOR TO LEAVING.
[2017-01-25] MEDS ORDERED: LIDOCAINE 1%, 20 ML MDV 0 ML ONE (15:22)
--- NOTE | 2017-01-25 15:55 | NUR ---
1600 NOTE: PATIENT HAS RETURNED FROM CT BIOPSY. PATIENT HAS BLOOD TO THE POSTERIOR HEAD. JETHRO HERANNDEZ IS HELPING TO CLEAN HIS HAIR AND SKIN. PATIENT IS HAVING PAIN AT 10/10 PER PATIENT. PATIENT MEDICATED PRIOR TO PROCEDURE WITH IV PAIN MEDICATION. PATIENT VERBALIZED UNDERSTANDING THAT HIS PAIN MEDICATIONS WERE NOT DUE AT THIS TIME. PATIENT STATES HE WOULD LIKE MEDICATION SOON IT IS AVAILABLE. WILL FOLLOW UP WITH PATIENT REGARDING PAIN MANAGEMENT. PROCEDURE WAS TOLERATED WELL. PERFORMED WITH NO COMPLICATIONS. PATIENTS BED IN LOWEST POSITION TO ALLOW EASE OF TRANSITION FROM WHEELCHAIR. PATIENTS SIDE RAILS ARE UP FOR SAFETY, AND CALL LIGHT WITHIN REACH. WILL MONITOR FOR CHANGES IN STATUS.
--- NOTE | 2017-01-25 18:15 | NUR ---
PATIENT FALL: PATIENT WAS FOUND ON THE FLOOR IN HIS ROOM. PATIENT STATES THAT HE WANTED TO FIX HIS SOCK AND FORGOT TO PUT THE BRAKES ON HIS WHEELCHAIR. PATIENT REFUSED PROPERLY FITTING SOCK ON HIS LEFT FOOT, HE WANTED TO WEAR THE BLUE NONSLIP SOCK. PATIENT DENIES ANY PAIN OR INJURY RELATED TO FALL. CHARGE NURSE NOTIFIED, PAGED TO NOTIFY OF FALL. PATIENT WAS RE-EDUCATED ON FALL RISK PREVENTION, MOVED TO ROOM CLOSER TO NURSES STATION.
--- NOTE | 2017-01-25 18:35 | NUR ---
MD NOTIFIED: MD NOTIFIED OF PATIENT FALL. NO CHANGE IN ORDERS, NO ADDITIONAL ORDERS.
--- NOTE | 2017-01-25 19:00 | NUR ---
CLOSING NOTE GAVE REPORT TO HYDROELECTRIC STATION OPERATOR RN. ENDORSED THAT PATIENT HAD A FALL ON UNIT. PATIENT IS ALERT AND ORIENTED, NO NOTABLE SIGNS OF DISTRESS AT THIS TIME. PATIENT HAS PAIN 10/10 IN RIGHT FACE AND EAR. WOULD LIKE PAIN MEDICATION WHEN AVAILABLE. PATIENTS SISTER IS AT BEDSIDE TO KEEP HIM COMPANY. PATIENT UPRIGHT IN HIS WHEELCHAIR. PATIENTS BED IN LOWEST POSITION, CALL LIGHT WITHIN REACH, AND SIDE RAILS ARE UP FOR SAFETY.
--- NOTE | 2017-01-25 19:20 | NUR ---
initial nursing notes: Patient is awake, sitting on the wheelchair. Patient's family member talking to the patient in the room. Patient has IV access on the left forearm. Patient denies of having pain.
--- NOTE | 2017-01-25 21:20 | NUR ---
nursing rounds: Patient is awake, sitting on the wheelchair. Encouraged patient to stay in bed for patient's safety but patient refuses. Patient had an episode of fall around 1810 this evening, per morning shift nurse report.
[2017-01-25] MEDS: AMITRIPTYLINE HCL 25 MG TABLET (ELAVIL) PO SCH (21:42)
[2017-01-25] MEDS: ENOXAPARIN SODIUM 40 MG/0.4 ML SYRINGE SUBCUT SCH (21:47)
[2017-01-25] MEDS: INSULIN REGULAR, HUMAN 100 UNITS/ML, 10 ML VIAL (novoLIN R) SUBCUT PRN (21:58)
--- NOTE | 2017-01-25 23:20 | NUR ---
nursing rounds: Patient received pain medication for headache. Patient stated that the pain medication was effective.
--- NOTE | 2017-01-26 01:20 | NUR ---
nursing rounds: Patient asked to have Jello for snack. Snack provided.
[2017-01-26] MEDS: HYDROmorphone 2 MG/ML VIAL IVP PRN ×6 (03:18→22:22)
--- NOTE | 2017-01-26 03:20 | NUR ---
nursing rounds: Patient received another dose of pain medication for headache. Will reassess patient.
--- NOTE | 2017-01-26 03:51 | NUR ---
nursing rounds: Patient asleep in bed. Patient has no shortness of breath.
--- NOTE | 2017-01-26 05:38 | NUR ---
nursing rounds: Patient calmly resting in bed. Call light within patient's reach.
--- NOTE | 2017-01-26 07:30 | NUR ---
nrsg: sitting at the edge of bed. bka right leg, awake,alert and oriented to name and placed only. respiration even and unlabored. lungs clear bilateral. no pain at this time and call light within reach
--- NOTE | 2017-01-26 07:37 | NUR ---
closing nursing notes: Patient is awake, alert and oriented X 4. Patient is in no acute respiratory distress. No episodes of fall and no injuries throughout the overnight cashier. Provided nursing report to incoming morning shift nurse, BRANDO Garduno, at patient's bedside.
[2017-01-26 08:00] VITALS: BP_SYST 109
--- NOTE | 2017-01-26 08:10 | NUR ---
activity: SITTING ON CHAIR , INSTRUCTED TO CALL IF NEEDS HELP AND VERBALIZED UNDERSTANDING.
[2017-01-26] MEDS: COLCHICINE 0.6 MG TABLET PO SCH (09:02)
[2017-01-26] MEDS: CITALOPRAM HYDROBROMIDE 20 MG TABLET PO SCH (09:02)
[2017-01-26] MEDS: LOSARTAN POTASSIUM 25 MG TABLET PO SCH (09:03)
[2017-01-26] MEDS: GABAPENTIN 300 MG CAPSULE PO SCH ×3 (09:03→20:51)
[2017-01-26] MEDS: CYCLOBENZAPRINE HCL 10 MG TABLET (FLEXERIL) PO SCH ×2 (09:03→20:51)
[2017-01-26] MEDS: amLODIPine BESYLATE 10 MG TABLET PO SCH (09:04)
[2017-01-26] MEDS: CARVEDILOL 12.5 MG TABLET (COREG) PO SCH ×2 (09:07→20:52)
[2017-01-26] MEDS: MORPHINE SULFATE 30 MG TABLET.SA PO SCH ×2 (09:08→20:51)
--- NOTE | 2017-01-26 10:00 | NUR ---
activity: resting on chair ,no pain at this time.
--- NOTE | 2017-01-26 11:56 | NUR ---
DISCHARGE PLANNING Faxed SNF referral to [facility] [phone]. Will follow up. Addendum: 01/26/17 at 1556 by Elizabeth SAMAYOA Spoke with Harvinder in admitting, fax received and pending DON review. DCP will follow up. Addendum: 01/26/17 at 1656 by Elizabeth SAMAYOA Meanwhile; faxed SNF referral to [phone] and [phone]. Will follow up.
[2017-01-26 12:00] VITALS: BP_SYST 117
--- NOTE | 2017-01-26 12:05 | NUR ---
ACTIVITY: SITTING ON CHAIR COMFORTABLY .CALL LIGHT WITHIN REACH.
--- NOTE | 2017-01-26 13:23 | NUR ---
PAIN : ASKED FOR PAIN MEDS. ANTONINO BOWER GAVE IVP MEDS.
[2017-01-26 16:00] VITALS: BP_SYST 97
--- NOTE | 2017-01-26 16:47 | NUR ---
Nutrition F/U Admitting Diagnosis Retractable headache Reviewed Pertinent Medical/Surgical Hx Patient Medical Record Medical History Comment: DM, PVD of LE, chronic CKD, metastatic renal cell carcinoma per MD notes Subjective Information Pt seen resting in wheelchair at time of RD visit. Observed box of vanilla wafer cookies at bedside. Pt reported that his sister brings them in for him to snack on. Pt reported that he has been receiving snacks from FNS department as well. Pending facial mass Bx taken yesterday, 01/25/17. Pt reported good appetite, tolerating diet well. Per EMR, PO Intakes: 100% x12 meals. Abd is soft w/ active bowel sounds. I/O: 0/700 (-700 ml) per per 12 hours. Current diet remains appropriate, no further restrictions warranted d/t importance of maximizing pt's nutrition status. Pt received nutrition education at initial visit. Current Diet Order/Nutrition Support CCHO x6 days Patient/Significant Other Able To Verbalize Education Provided Indicated Pertinent Medications SSI Pertinent Labs 01/26/17: POC BG 146 H 01/24/17: BG 142 H, BUN 45 H, CRE 1.75 H, WBC 7.7 WNL (improved), eGFR 43 L Height (Feet) 6 feet Height (Inches) 2.00 inches Weight (Pounds) 238 pounds (admission) Weight (Calculated Kilograms) 107.734377 kilograms Patient Weight 107.955 kg Body Mass Index 30.55 kg/m2 Usual Weight 239 lbs %UBW 99 %IBW 126 [place]/Adjusted Body Weight IBW: 190lb, 86kg. Adj IBW (obesity): 202lb, 92kg & (R BKA): 179lb, 81kg Recent Weight Change Yes Weight Status Obese Gastrointestinal Symptoms None Last BM Jan 25, 2017 Difficulty With: Chewing Food Allergies No Usual Diet At Home 3 meals/day, fast food ([employer] and [employer]), PB&J sandwiches Skin Integrity Comment: Olman scale: 17; per nursing notes, anterior abd: scar; lower R leg: BKA Current % PO Good (75-100%) Estimated Energy Expenditure (kcals/day) 0406-3968 kcal/day (BEE x 1.2-1.5 CBW for CA) Estimated Protein Required (g/day) 52-103 gm/day (0.6-1.2 gm/kg IBW for CA, CKD) Estimated Fluid Required (l/day) Per MD (CKD) Problem/Etiology/Signs/Symptoms Altered nutrition-related labs related to endocrine dysfunction as evidenced by elevated BG and POC BG lab values. *improving Expected Outcomes/Goals - Monitor appetite and PO intakes w/ goal of pt meeting at least 75% of estimated nutritional needs, labs trending WNL, normal GI function, and skin integrity/wt maintenance Dietitian Recommendations * Recommend continuing CCHO diet per MD * Recommend continuing low-carb snacks TID Follow Up Low Risk: F/U in 7 days
--- NOTE | 2017-01-26 17:46 | NUR ---
PAIN: ASKED FOR MEDS. IVP AND GIVEN BY RN.
--- NOTE | 2017-01-26 18:02 | NUR ---
ACTIVITY: RESTING ON CHAIR COMFORTABLY ,WAITING FOR FOODS AND C/O PAIN IS EASING.
--- NOTE | 2017-01-26 18:20 | NUR ---
call: DR. KUMARI WAS NOTIFIED THE RESULT OF TROPONIN AND EKG. AND OKAY TO GO HOME.
[2017-01-26 20:30] VITALS: BP_SYST 125
--- NOTE | 2017-01-26 20:30 | NUR ---
Initial note A/O x 3, no SOB, no chest pain, c/o R face and neck pain 03/25. 2100 meds given. Patient is aware of next of pain mediations will be available around 2144. BS 184, 2 units regular Insulin given. No s/s of hyper or hypoglycemia. Patient was drink juice before blood sugar checking. Clear lung sounds and active bowel sounds. Patient stated he had one BM a while ago. R BKA. Edema at L foot. Patient is sitting W/C, able to wheel himself. Call light within reach, will continue to monitor patient.
[2017-01-26] MEDS: ENOXAPARIN SODIUM 40 MG/0.4 ML SYRINGE SUBCUT SCH (20:51)
[2017-01-26] MEDS: AMITRIPTYLINE HCL 25 MG TABLET (ELAVIL) PO SCH (20:51)
[2017-01-26] MEDS: INSULIN REGULAR, HUMAN 100 UNITS/ML, 10 ML VIAL (novoLIN R) SUBCUT PRN (20:58)
--- NOTE | 2017-01-26 22:13 | NUR ---
Rounds Patient resting/sleeping in bed. No SOB, no chest pain, no grimacing. No s/s of hyper or hypoglycemia. Call light within reach, will continue to monitor patient.
--- NOTE | 2017-01-26 22:22 | NUR ---
Patient c/o R face pain 10/10 Dilaudid given. Patient is sitting at edge of bed.
--- NOTE | 2017-01-26 22:44 | NUR ---
Assisted patient to bathroom for urination x 1. Patient stated no BM. Patient also stated pain decreased a lot after pain med given. Now patient is back to bed and ready to sleep.
[2017-01-27] VITALS (7 sets, daily range): BP systolic 110–131
--- NOTE | 2017-01-27 00:10 | NUR ---
Rounds Sleeping in bed. No SOB, no chest pain, no grimacing. No s/s of hyper or hypoglycemia. Call light within reach, will continue to monitor patient.
--- NOTE | 2017-01-27 02:10 | NUR ---
Rounds Sleeping in bed. No SOB, no chest pain, no grimacing. No s/s of hyper or hypoglycemia. Self turn. Call light within reach, bed at lowest position, bed alarm on, will continue to monitor patient.
--- NOTE | 2017-01-27 03:31 | NUR ---
Patient called for urination. Urinal given, emptied 400 ml clear yellow urine.
--- NOTE | 2017-01-27 04:20 | NUR ---
Rounds Awake, resting in bed. No SOB, no chest pain, denied pain. No s/s of hyper or hypoglycemia. Self turn. Call light within reach, bed at lowest position, bed alarm on, will continue to monitor patient.
[2017-01-27] MEDS: INSULIN REGULAR, HUMAN 100 UNITS/ML, 10 ML VIAL (novoLIN R) SUBCUT PRN ×3 (06:07→22:02)
--- NOTE | 2017-01-27 06:08 | NUR ---
Rounds Sleeping in bed, arousable. No SOB, no chest pain, denied pain. Blood sugar 151, 2 units of Reg Insulin given. No s/s of hyper or hypoglycemia. Self turn. Call light within reach, bed at lowest position, bed alarm on, will continue to monitor patient.
--- NOTE | 2017-01-27 06:37 | NUR ---
Closing note Sleeping in bed. No SOB, no chest pain, no grimacing. No s/s of hyper or hypoglycemia. Self turn. Call light within reach, bed at lowest position, bed alarm on, will give report to incoming nurse.
--- NOTE | 2017-01-27 08:00 | NUR ---
AM NOTES: Received patient alert, sleepy, easily distracted when calling name. refused to eat breakfast stated not really sleep good last night. saturation on room air 88%. placed on oxygen @ 2l/nc 90% saturation. encourage to do deep breathing. recheck blood sugar 137. side rail up. no s/s of distress. call light within reach. encourage to call when assistance needed. will monitor.
--- NOTE | 2017-01-27 10:11 | NUR ---
DISCHARGE PLANNING Received call from Whitney in admitting at [facility], patient accepted and will give bed assignment upon discharge order. Whitney requested PT notes to be faxed. ANTONINO Russell was made aware, no PT order. PT notes needed for SNF placement. DCP will fax PT notes when available. Will follow up. Addendum: 01/27/17 at 1021 by Elizabeth SAMAYOA Spoke with Jodie at [facility] patient assigned to room 16A RN to report [phone] bed available anytime. Addendum: 01/27/17 at 1141 by Elizabeth SAMAYOA Per requested faxed SNF referral to [phone]. Will follow up. Addendum: 01/27/17 at 1247 by Elizabeth SAMAYOA Spoke with Cristino in admitting at [facility] patient accepted assigned to room [facility] RN to report [phone], bed available anytime. CM made aware. Addendum: 01/27/17 at 1401 by lEizabeth Rehman DP any ambulance can be arranged. Placed transportation packet in nurses station. Pending discharge order.
[2017-01-27] MEDS: COLCHICINE 0.6 MG TABLET PO SCH (10:31)
[2017-01-27] MEDS: GABAPENTIN 300 MG CAPSULE PO SCH ×3 (10:32→21:52)
[2017-01-27] MEDS: CARVEDILOL 12.5 MG TABLET (COREG) PO SCH ×2 (10:33→21:53)
[2017-01-27] MEDS: MORPHINE SULFATE 30 MG TABLET.SA PO SCH ×2 (10:34→21:52)
[2017-01-27] MEDS: amLODIPine BESYLATE 10 MG TABLET PO SCH (10:34)
[2017-01-27] MEDS: CYCLOBENZAPRINE HCL 10 MG TABLET (FLEXERIL) PO SCH ×2 (10:38→21:52)
[2017-01-27] MEDS: LOSARTAN POTASSIUM 25 MG TABLET PO SCH (10:39)
[2017-01-27] MEDS: HYDROmorphone 2 MG/ML VIAL IVP PRN ×3 (10:43→21:57)
[2017-01-27] MEDS: CITALOPRAM HYDROBROMIDE 20 MG TABLET PO SCH (10:44)
--- NOTE | 2017-01-27 11:00 | NUR ---
Patient is able to reposition self in bed and is encouraged to request assistance when needed.
--- NOTE | 2017-01-27 12:30 | NUR ---
notes: seen by physical therapies and evaluated.
--- NOTE | 2017-01-27 15:00 | NUR ---
PATIENT RESTING: Patient resting quietly. No acute distress noted. Vital signs within normal range.
--- NOTE | 2017-01-27 19:02 | NUR ---
Notes: all needs mets. vital sign stable, afebrile. no s/s of distress noted. will endorsed to incoming nurse.
--- NOTE | 2017-01-27 19:32 | NUR ---
Initial note A/O x 3, no SOB, no chest pain, c/o R face pain 3/10. Skin warm tot touch, R BKA. +2 edema on L leg with +1 pedal pulse. Resting in bed. Clear/diminished lung sounds and active bowel sounds. Patient stated he had one BM today. IV at L FA, patent, no s/s of infection. No s/s of hyperglycemia or hypoglycemia. Patient will eat dinner now. Call light within reach. Bed alarm on, bed at lowest position. Dr. Khan here. Transferring to [facility] pending. Patient is aware of transferring. Will continue to monitor patient.
--- NOTE | 2017-01-27 19:50 | NUR ---
AMBULANCE ARRANGEMENT DAMASO AYERS CALLED AT SPOKE WITH DAVID.
--- NOTE | 2017-01-27 20:07 | NUR ---
Report gave to Krishna MUÑIZ at [facility] @ [phone]. Informed her transportation will be here around 2099. Will DC IV before patient leaves here.
[2017-01-27] MEDS: AMITRIPTYLINE HCL 25 MG TABLET (ELAVIL) PO SCH (21:51)
[2017-01-27] MEDS: ENOXAPARIN SODIUM 40 MG/0.4 ML SYRINGE SUBCUT SCH (21:53)
--- NOTE | 2017-01-27 22:00 | NUR ---
Discharge note Ambulance here. Patient VS 134/72/89. BS 150, no coverage. Skin warm to touch. Gave all night meds and gave Dilaudid IVP as patient requested for his R face pain 03/25. IV DC'd after Dilaudid given. Patient transferred in a good condition.
== END 2017-01-27 22:00 | DRG 607 ==
LOC: SMU 16:05
PROVIDERS: ADMIT Family Medicine; ATTEND Family Medicine
PROC: 0JB53ZX Excision of Left Neck Subcutaneous Tissue and Fascia, Percutaneous Approach, Diagnostic (ICD-10-PCS; principal; 2017-01-25)
DX: R22.1 Localized swelling, mass and lump, neck (principal); C78.00 Secondary malignant neoplasm of unspecified lung; N18.9 Chronic kidney disease, unspecified; E11.51 Type 2 diabetes mellitus with diabetic peripheral angiopathy without gangrene; F17.200 Nicotine dependence, unspecified, uncomplicated; E11.22 Type 2 diabetes mellitus with diabetic chronic kidney disease; Z89.511 Acquired absence of right leg below knee; Z90.5 Acquired absence of kidney; Z85.528 Personal history of other malignant neoplasm of kidney
CPT/HCPCS: 36415; 70490; 71010; 71250-TC; 77012; 80053; 82962; 85025; 85610-TC; 85730-TC; 88305; J1170; J1650; J1815; J2001; J2274; Q9964

== ENCOUNTER 2017-12-10 21:50 | Emergency (ER) | payer OTHER, MEDICAID ==
[~2017-12-10] VITALS: Ht 157.5 cm; Wt 64.4 kg
[~2017-12-10 21:50] MED LIST: APIX5TAB PO; CARV12.548 PO; COLC0.6T67 PO; CYCL-365 PO; HYDR-4100 PO; INSU100V11 SQ; LOP600 PO; LOSA25TA3 PO; NEU300 PO; NOR10 PO; TAMS-11 PO; TOBR5DRO2 OP
[2017-12-10 21:55] VITALS: BP_SYST 146
[2017-12-10] MEDS ORDERED: MORPHINE 4 MG/ML INJ. SYRINGE IVP ONE (22:30)
[2017-12-10 23:42] LABS: BASOPHILS # (AUTO) 0.1 K/uL (0.0-0.2); EOSINOPHILS # (AUTO) 0.2 K/uL (0.0-0.4); EOSINOPHILS % (AUTO) 3.5 % (0.0-4.0); HEMATOCRIT 34.1 % (36-54); HEMOGLOBIN 11.9 g/dL (14.0-18.0); LYMPHOCYTES # (AUTO) 2.3 K/uL (1.0-5.5); LYMPHOCYTES % (AUTO) 34.3 % (20.5-51.5); MEAN CORPUSCULAR HEMOGLOBIN 30 pg (27-31); MEAN CORPUSCULAR HGB CONC 35 % (32-36); MEAN CORPUSCULAR VOLUME 87 fL (79.0-98.0); MONOCYTES # (AUTO) 0.5 K/uL (0.0-1.0); MONOCYTES % (AUTO) 7.7 % (1.7-9.3); NEUTROPHILS # (AUTO) 3.7 K/uL (1.8-7.7); NEUTROPHILS % (AUTO) 53.5 % (40.0-70.0); PLATELET COUNT (AUTO) 253 K/uL (130-430); RED BLOOD CELL COUNT(AUTO) 3.93 MIL/uL (4.2-6.2); RED CELL DISTRIBUTION WIDTH 14.1 % (9.0-15.0); WHITE BLOOD COUNT (AUTO) 6.8 K/uL (4.8-10.8)
[2017-12-10 23:48] LABS: CALCIUM 8.7 mg/dL (8.4-11.0); CREATININE 1.64 mg/dL (0.55-1.30); POTASSIUM 4.5 mmol/L (3.5-5.1)
[2017-12-10 23:53] LABS: PROTHROMBIN TIME 9.7 SECS (9.5-12.5)
[2017-12-11] LABS: ALBUMIN 3.4 g/dL (3.4-4.8); TOTAL BILIRUBIN 0.3 mg/dL (0.0-1.0)
[2017-12-11 01:08] VITALS: BP_SYST 140
[2017-12-11 01:11] LABS: BILIRUBIN,URINE NEGATIVE (NEGATIVE); BLOOD, URINE 1+ (NEGATIVE); CLARITY/URINE CLEAR (CLEAR); COLOR,URINE YELLOW (YELLOW); GLUCOSE,URINE 3+ (NEGATIVE); KETONES,URINE NEGATIVE (NEGATIVE); LEUKOCYTE ESTERASE ,URINE NEGATIVE (NEGATIVE); NITRITE, URINE NEGATIVE (NEGATIVE); PH,URINE 6.5 (5.0-8.0); PROTEIN URINE 3+ (NEGATIVE); UROBILINOGEN,URINE 0.2 (0.2-1.0)
[2017-12-11 01:34] LABS: BACTERIA,URINE FEW /HPF (None Seen); WBC,URINE 0-3 /HPF (0-3)
== END 2017-12-11 01:08 | disposition home or self-care (01) ==
LOC: SED 21:50
DX: T82.848A Pain due to vascular prosthetic devices, implants and grafts, initial encounter (principal); E11.9 Type 2 diabetes mellitus without complications; E78.00 Pure hypercholesterolemia, unspecified; Z79.899 Other long term (current) drug therapy; Z88.5 Allergy status to narcotic agent; Z85.528 Personal history of other malignant neoplasm of kidney; Y83.9 Surgical procedure, unspecified as the cause of abnormal reaction of the patient, or of later complication, without mention of misadventure at the time of the procedure; Y92.89 Other specified places as the place of occurrence of the external cause
CPT/HCPCS: 36415; 71045; 80053; 81000; 85025; 85610; 96374; 99285; J2270

== ENCOUNTER 2018-03-21 18:33 | Emergency (ER) | payer OTHER, MEDICAID ==
[~2018-03-21] VITALS: Ht 188 cm; Wt 108.4 kg
[2018-03-21 18:33] VITALS: BP_SYST 159
[~2018-03-21 18:33] MED LIST changes: -CYCL-365 PO; +CYCL10TA9 PO
[2018-03-21 19:34] LABS: BILIRUBIN,URINE NEGATIVE (NEGATIVE); BLOOD, URINE 1+ (NEGATIVE); CLARITY/URINE CLEAR (CLEAR); COLOR,URINE YELLOW (YELLOW); GLUCOSE,URINE TRACE (NEGATIVE); KETONES,URINE NEGATIVE (NEGATIVE); LEUKOCYTE ESTERASE ,URINE NEGATIVE (NEGATIVE); NITRITE, URINE NEGATIVE (NEGATIVE); PROTEIN URINE 3+ (NEGATIVE); UROBILINOGEN,URINE 0.2 (0.2-1.0)
[2018-03-21 19:44] LABS: BACTERIA,URINE FEW /HPF (None Seen); RBC,URINE 0-3 /HPF (0-3)
[2018-03-21] MEDS ORDERED: cefTRIAXone 1 GM in LIDOCAINE 1%, 20 ML MDV 2.1 ML IM ONE (21:00)
[2018-03-21] MEDS ORDERED: KETOROLAC TROMETHAMINE 60 MG/2 ML VIAL IM ONE (21:00)
[2018-03-21] MEDS ORDERED: PHENAZOPYRIDINE HCL 100 MG TABLET PO ONE (21:00)
[2018-03-21 21:33] LABS: BASOPHILS # (AUTO) 0.1 K/uL (0.0-0.2); BASOPHILS % (AUTO) 0.8 % (0.0-2.0); EOSINOPHILS # (AUTO) 0.2 K/uL (0.0-0.4); EOSINOPHILS % (AUTO) 1.4 % (0.0-4.0); HEMATOCRIT 32.2 % (36-54); HEMOGLOBIN 11.4 g/dL (14.0-18.0); LYMPHOCYTES # (AUTO) 3.1 K/uL (1.0-5.5); LYMPHOCYTES % (AUTO) 22.5 % (20.5-51.5); MEAN CORPUSCULAR HEMOGLOBIN 31 pg (27-31); MEAN CORPUSCULAR HGB CONC 36 % (32-36); MEAN CORPUSCULAR VOLUME 87 fL (79.0-98.0); MONOCYTES # (AUTO) 0.6 K/uL (0.0-1.0); MONOCYTES % (AUTO) 4.6 % (1.7-9.3); NEUTROPHILS # (AUTO) 9.6 K/uL (1.8-7.7); NEUTROPHILS % (AUTO) 70.7 % (40.0-70.0); PLATELET COUNT (AUTO) 272 K/uL (130-430); RED CELL DISTRIBUTION WIDTH 14.1 % (9.0-15.0); WHITE BLOOD COUNT (AUTO) 13.6 K/uL (4.8-10.8)
[2018-03-21 21:42] LABS: CREATININE 1.43 mg/dL (0.55-1.30)
[2018-03-21] MEDS ORDERED: KETOROLAC TROMETHAMINE 15 MG VIAL IVP ONE (21:45)
[2018-03-21 22:05] VITALS: BP_SYST 143
[2018-03-21 22:15] LABS: CALCIUM 8.5 mg/dL (8.4-11.0)
== END 2018-03-21 22:05 | disposition home or self-care (01) ==
LOC: SED 18:33
DX: N39.0 Urinary tract infection, site not specified (principal); E11.9 Type 2 diabetes mellitus without complications; Z85.528 Personal history of other malignant neoplasm of kidney; Z79.899 Other long term (current) drug therapy; Z88.8 Allergy status to other drugs, medicaments and biological substances
CPT/HCPCS: 36415; 80048; 81000; 85025; 96372; 96374; 99284; J0696; J1885; J2001